=== PATIENT | male | born 1975 | race Caucasian/White ===

== ENCOUNTER 2018-03-26 21:35 | Emergency (ER) | payer OTHER ==
[~2018-03-26] VITALS: Ht 182.9 cm; Wt 84.0 kg
[2018-03-26 21:37] VITALS: BP 164/111
== END 2018-03-26 23:00 | disposition left against medical advice (07) ==
LOC: ER 21:50
DX: T65.91XA Toxic effect of unspecified substance, accidental (unintentional), initial encounter (principal); Z53.21 Procedure and treatment not carried out due to patient leaving prior to being seen by health care provider